=== PATIENT | female | born 1945 | race Caucasian/White ===

== ENCOUNTER → 2016-12-16 | Outpatient (CLI) | payer MEDICARE, BC ==
[~2016-12-16] MED LIST: ANTIVERT 25MG25 MG PO; HYZAAR 25 MG-101 TAB PO; NORVASC 10MG10 MG PO; PRAVACHOL 40MG40 MG PO; WELLBUTRIN XL300 M1 PO
== END ==
LOC: MC.RAD 08:32
DX: Z12.31 Encounter for screening mammogram for malignant neoplasm of breast (principal)